=== PATIENT | female | born 1960 | race Two or more races ===

== ENCOUNTER 2017-12-14 08:41 | Inpatient (IN) | payer OTHER ==
[~2017-12-14] VITALS: Ht 157.5 cm; Wt 88.5 kg
[~2017-12-14 08:41] MED LIST: ALL DAY ALLERGY10 M3 PO; CITIRIZINE PO; COZAAR100 MG PO; DULOXETINE HCL30 MG PO; FLOVENT DISKUS50 MCG IH; NABUMETONE500 MG PO; OMEPRAZOLE20 MG PO; PERCOCET 5/3251 TAB PO; PREMAR PO; RANITIDINE HCL300 M1 PO; RESTORA CAPSUL1 EACH PO; SYNTHROID125 MCG PO; VENTOLIN HFA18 GM IH; VERAPAMIL ER180 MG PO
[2017-12-14] MEDS ORDERED: BREO ELLIPTA 21 EACH IH (08:56)
[2017-12-14] MEDS ORDERED: LOSARTAN-HCTZ1 EAC2 PO (08:57)
== END 2017-12-23 14:18 | DRG 470 ==
LOC: O/R 12-21 05:35 → SURH 12-21 05:35
PROVIDERS: Orthopaedic Surgery
PROC: 0SRD0J9 Replacement of Left Knee Joint with Synthetic Substitute, Cemented, Open Approach (ICD-10-PCS; principal; 2017-12-21 13:00)
DX: M17.12 Unilateral primary osteoarthritis, left knee (principal); D62 Acute posthemorrhagic anemia; M85.462 Solitary bone cyst, left tibia and fibula; M65.862 Other synovitis and tenosynovitis, left lower leg; M94.262 Chondromalacia, left knee; M23.207 Derangement of unspecified meniscus due to old tear or injury, left knee; G47.33 Obstructive sleep apnea (adult) (pediatric); E03.8 Other specified hypothyroidism

== ENCOUNTER 2018-07-13 08:27 | Day surgery (SDC) | payer OTHER ==
[~2018-07-13 08:27] MED LIST changes: +BREO ELLIPTA 21 EACH IH; +ESTR0.624 PO; +LOSARTAN-HCTZ1 EAC2 PO; +PERCOCET 5-3251 EACH PO; +PREDISONE PO; +SYNTHROID112 MCG PO; +ZOLOFT20 MG/1 ML PO
== END 2018-07-13 10:40 | disposition home or self-care (01) ==
LOC: CIR.AMB 08:27
DX: T84.89XA Other specified complication of internal orthopedic prosthetic devices, implants and grafts, initial encounter (principal)

== ENCOUNTER 2018-11-30 07:45 | Inpatient (IN) | payer OTHER ==
[~2018-11-30] VITALS: Ht 157.5 cm; Wt 80.7 kg
[2018-11-30] MEDS ORDERED: ESTR0.624 PO (10:32)
[2018-11-30] MEDS ORDERED: ZOLOFT50 MG PO (10:33)
[2018-11-30] MEDS ORDERED: PERCOCET 5-3251 EACH (10:33)
[2018-11-30] MEDS ORDERED: [UNRECOGNIZED DRUG - OTHER] PO (10:34)
[2018-11-30] MEDS ORDERED: GABAPENTIN100 MG PO (10:34)
== END 2018-12-08 20:26 | DRG 464 ==
LOC: SURG 12-06 05:10 → O/R 12-06 05:10 → SURH 12-06 07:00 → SURG 12-06 15:20
PROVIDERS: ADMIT Orthopaedic Surgery
PROC: 0SWD0JZ Revision of Synthetic Substitute in Left Knee Joint, Open Approach (ICD-10-PCS; 2018-12-06)
PROC: 0SPD0JZ Removal of Synthetic Substitute from Left Knee Joint, Open Approach (ICD-10-PCS; principal; 2018-12-06 07:00)
DX: T84.84XA Pain due to internal orthopedic prosthetic devices, implants and grafts, initial encounter (principal); D62 Acute posthemorrhagic anemia; G89.18 Other acute postprocedural pain; M94.262 Chondromalacia, left knee; I10 Essential (primary) hypertension; G47.33 Obstructive sleep apnea (adult) (pediatric); E03.8 Other specified hypothyroidism; Z96.652 Presence of left artificial knee joint

== ENCOUNTER 2019-04-06 14:37 | Inpatient (IN) | payer OTHER ==
[~2019-04-06] VITALS: Ht 157.5 cm; Wt 81.6 kg
[~2019-04-06 14:37] MED LIST changes: +GABAPENTIN100 MG PO; +PERCOCET 5-3251 EACH; +ZOLOFT50 MG PO; +[UNRECOGNIZED DRUG - OTHER] PO
[2019-04-10] MEDS ORDERED: PROTONIX40 M1 (09:05)
[2019-04-14] MEDS ORDERED: OXYC1TAB9 PO (08:22)
[2019-04-14] MEDS ORDERED: NORFLEX100MG PO (08:22)
[2019-04-14] MEDS ORDERED: GABAPENTIN100 MG PO (08:22)
[2019-04-14] MEDS ORDERED: XARELTO10 MG PO (08:22)
== END 2019-04-14 17:02 | disposition home or self-care (01) | DRG 470 ==
LOC: O/R 04-10 08:30 → SURG 04-10 08:30 → O/R 04-11 04:50 → SURG 04-11 08:30
PROVIDERS: ADMIT Orthopaedic Surgery
PROC: 0SRD0J9 Replacement of Left Knee Joint with Synthetic Substitute, Cemented, Open Approach (ICD-10-PCS; principal; 2019-04-11 12:30)
DX: T84.53XA Infection and inflammatory reaction due to internal right knee prosthesis, initial encounter (principal); D62 Acute posthemorrhagic anemia; G47.33 Obstructive sleep apnea (adult) (pediatric); M65.862 Other synovitis and tenosynovitis, left lower leg; M94.262 Chondromalacia, left knee

== ENCOUNTER 2019-05-30 09:45 | Inpatient (IN) | payer OTHER ==
[~2019-05-30] VITALS: Ht 157.5 cm; Wt 81.6 kg
[~2019-05-30 09:45] MED LIST changes: +NORFLEX100MG PO; +OXYC1TAB9 PO; +PROTONIX40 M1; +XARELTO10 MG PO
[2019-06-21] MEDS ORDERED: BREO ELLIPTA 21 EACH IH (10:04)
[2019-06-21] MEDS ORDERED: SYNTHROID125 MCG PO (10:04)
[2019-06-21] MEDS ORDERED: IRBESARTAN-HCT1 EACH PO (10:05)
[2019-06-29] MEDS ORDERED: PERCOCET 5-3251 EACH PO (11:22)
== END 2019-06-29 15:47 | DRG 467 ==
LOC: O/R 09:45 → SURH 06-06 07:00 → O/R 06-27 05:20 → SURG 06-27 05:20
PROVIDERS: ADMIT Orthopaedic Surgery
PROC: 0SRD0J9 Replacement of Left Knee Joint with Synthetic Substitute, Cemented, Open Approach (ICD-10-PCS; 2019-06-27)
PROC: 0SPD0JZ Removal of Synthetic Substitute from Left Knee Joint, Open Approach (ICD-10-PCS; principal; 2019-06-27 11:30)
DX: M17.12 Unilateral primary osteoarthritis, left knee (principal); D62 Acute posthemorrhagic anemia; T84.093A Other mechanical complication of internal left knee prosthesis, initial encounter; I10 Essential (primary) hypertension; E03.8 Other specified hypothyroidism; G47.33 Obstructive sleep apnea (adult) (pediatric); M22.42 Chondromalacia patellae, left knee; Z96.652 Presence of left artificial knee joint